=== PATIENT | female | born 1990 | race Caucasian/White ===

== ENCOUNTER 2023-12-02 16:57 | Emergency (ER) | payer OTHER ==
[~2023-12-02] VITALS: Ht 165.1 cm; Wt 68.0 kg
[2023-12-02] MEDS ORDERED: IBUPROFEN 600 MG TABLET ONE (18:42)
[2023-12-02] MEDS: IBUPROFEN 600 MG TABLET PO ONE (18:45)
[2023-12-02 18:46] VITALS: BP 130/80; TEMP 97; O2SAT 99
== END 2023-12-02 18:47 | disposition home or self-care (01) ==
LOC: ER 17:10
DX: R20.2 Paresthesia of skin (principal); F32.A Depression, unspecified
CPT/HCPCS: A4606; A4663

== ENCOUNTER 2025-06-02 07:17 | Inpatient (IN) | payer OTHER ==
[~2025-06-02] VITALS: Ht 165.1 cm; Wt 68.0 kg
[~2025-06-02 07:17] MED LIST: DICY10CA13 PO; ONDA4TAB5 PO; PANT40TA2 PO
[2025-06-02 08:28] LABS: PLATELET COUNT (AUTO) 297 K/uL (179-408); RED BLOOD CELL COUNT(AUTO) 4.49 MIL/uL (3.63-4.92); RED CELL DISTRIBUTION WIDTH 13.6 % (12.3-17.7); WHITE BLOOD COUNT (AUTO) 6.7 K/uL (3.8-11.8)
[2025-06-02 08:33] LABS: CREATININE 0.7 mg/dL (0.6-1.3); SODIUM SERUM 142.0 mmol/L (136-145); UREA NITROGEN, BLOOD 8.0 mg/dL (7-18)
[2025-06-02] MEDS: IV NORMAL SALINE 1000 ML BAG IV ONE (08:33)
[2025-06-02] MEDS ORDERED: HYDROMORPHONE 1 MG/1 ML DISP.SYRIN ONE (08:35)
[2025-06-02] MEDS ORDERED: ONDANSETRON 4 MG/2 ML VIAL ONE (08:35)
[2025-06-02 08:39] LABS: ASPARTATE AMINOTRANSFERASE 208.0 U/L (15-37); TOTAL PROTEIN, SERUM 7.1 g/dL (6.4-8.2)
[2025-06-02] MEDS: HYDROMORPHONE 1 MG/1 ML DISP.SYRIN IV ONE (08:39)
[2025-06-02] MEDS: ONDANSETRON 4 MG/2 ML VIAL IV ONE (08:39)
[2025-06-02] MEDS ORDERED: CHOLECALCIFEROL 1,000 UNIT TABLET ONE (09:19)
[2025-06-02] MEDS: CHOLECALCIFEROL 1,000 UNIT TABLET PO ONE (09:23)
[2025-06-02 10:36] LABS: *BILIRUBIN,URIN NEGATIVE (NEGATIVE); *BLOOD, URINE 2+ (NEGATIVE); *COLOR,URINE YELLOW (YELLOW); *KETONES,URINE NEGATIVE (NEGATIVE); *PROTEIN,URINE NEGATIVE (NEGATIVE); *UROBILINOGEN,URINE 0.2 E.U./dl (NORMAL); LEUKOCYTE ESTERASE ,URINE 1+ (NEGATIVE); NITRITE, URINE NEGATIVE (NEGATIVE); UGLUCOSE NEGATIVE (NEGATIVE)
[2025-06-02 11:20] LABS: *CLARITY,URINE SLIGHTLY HAZY (CLEAR)
[2025-06-02 11:21] LABS: SQUAMOUS EPITHELIAL CELL,UR FEW /HPF (NONE SEEN); URINE AMORPHOUS URATE FEW /HPF
[2025-06-02 12:15] VITALS: BP 115/70
[2025-06-02 15:08] VITALS: BP 122/78; TEMP 97.9; O2SAT 97
[2025-06-02] MEDS ORDERED: BUPR-96 PO (15:57)
[2025-06-02] MEDS ORDERED: LABE200T5 PO (15:57)
[2025-06-02] MEDS ORDERED: NIFE-35 PO (15:57)
[2025-06-02] MEDS ORDERED: [UNRECOGNIZED DRUG - CODE] PO (15:57)
[2025-06-02] MEDS ORDERED: ONDANSETRON 4 MG/2 ML VIAL IV PRN (17:30)
[2025-06-02] MEDS ORDERED: ACETAMINOPHEN 325 MG TABLET PO PRN (17:30)
[2025-06-02] MEDS ORDERED: REMEDY ESSENTIAL ZINC PASTE 113 GM TP PRN (17:30)
[2025-06-02] MEDS: KETOROLAC TROMETHAMINE 15 MG INJ IVP PRN (20:47)
[2025-06-03] MEDS: HYDROCODONE/APAP 10-325 MG TABLET PO PRN (03:19)
[2025-06-03 05:41] VITALS: BP 114/78; TEMP 98.6; O2SAT 96
[2025-06-03] MEDS: PANTOPRAZOLE SODIUM 40 MG TABLET.DR PO SCH (06:06)
[2025-06-03 06:42] LABS: PLATELET COUNT (AUTO) 300 K/uL (179-408); RED BLOOD CELL COUNT(AUTO) 4.72 MIL/uL (3.63-4.92); RED CELL DISTRIBUTION WIDTH 14.1 % (12.3-17.7); WHITE BLOOD COUNT (AUTO) 7.2 K/uL (3.8-11.8)
[2025-06-03 07:01] LABS: ASPARTATE AMINOTRANSFERASE 217.0 U/L (15-37); CREATININE 0.7 mg/dL (0.6-1.3); SODIUM SERUM 140.0 mmol/L (136-145); TOTAL PROTEIN, SERUM 6.3 g/dL (6.4-8.2); UREA NITROGEN, BLOOD 9.0 mg/dL (7-18)
[2025-06-03] MEDS: LABETALOL HCL 200 MG TABLET PO SCH (08:04)
[2025-06-03] MEDS: buPROPion XL 150 MG TAB.SR.24H PO SCH (08:05)
[2025-06-03] MEDS: NIFEdipine XL 30 MG TABSR PO SCH (08:05)
[2025-06-03 11:55] VITALS: BP 97/66; TEMP 97.9; O2SAT 98
[2025-06-03] MEDS ORDERED: CEPH500T PO (12:16)
[2025-06-03] MEDS ORDERED: PANT40TA49 PO (12:16)
[2025-06-03] MEDS ORDERED: IBUP-1953 PO (12:16)
== END 2025-06-03 13:01 | disposition home or self-care (01) | DRG 776 ==
LOC: ER 07:17 → MEDSURG3 14:48
PROVIDERS: ADMIT Nurse Practitioner Acute Care; ATTEND Nurse Practitioner Acute Care
DX: O99.63 Diseases of the digestive system complicating the puerperium (principal); N39.0 Urinary tract infection, site not specified; K80.20 Calculus of gallbladder without cholecystitis without obstruction; O86.20 Urinary tract infection following delivery, unspecified; K76.0 Fatty (change of) liver, not elsewhere classified; F32.A Depression, unspecified; Z79.899 Other long term (current) drug therapy; R74.01 Elevation of levels of liver transaminase levels
CPT/HCPCS: 36415; 74181; 83690; 83735; 84100; 85025; 87086; A4606; A4663; G0378; J0696; J1171; J1885; J2405; J7040

== ENCOUNTER 2025-07-06 14:54 | Inpatient (IN) | payer OTHER ==
[~2025-07-06] VITALS: Ht 165.1 cm; Wt 68.0 kg
[~2025-07-06 14:54] MED LIST changes: +BUPR-96 PO; +CEPH500T PO; -DICY10CA13 PO; +IBUP-1953 PO; -ONDA4TAB5 PO; -PANT40TA2 PO; +PANT40TA49 PO
[2025-07-06 16:11] LABS: *BILIRUBIN,URIN NEGATIVE (NEGATIVE); *BLOOD, URINE NEGATIVE (NEGATIVE); *CLARITY,URINE CLEAR (CLEAR); *COLOR,URINE YELLOW (YELLOW); *KETONES,URINE 4+ (NEGATIVE); *PROTEIN,URINE NEGATIVE (NEGATIVE); *UROBILINOGEN,URINE 0.2 E.U./dl (NORMAL); LEUKOCYTE ESTERASE ,URINE NEGATIVE (NEGATIVE); NITRITE, URINE NEGATIVE (NEGATIVE); UGLUCOSE NEGATIVE (NEGATIVE)
[2025-07-06 16:16] LABS: PLATELET COUNT (AUTO) 304 K/uL (179-408); RED BLOOD CELL COUNT(AUTO) 5.18 MIL/uL (3.63-4.92); RED CELL DISTRIBUTION WIDTH 13.9 % (12.3-17.7); WHITE BLOOD COUNT (AUTO) 9.4 K/uL (3.8-11.8)
[2025-07-06] MEDS ORDERED: ONDANSETRON 4 MG/2 ML VIAL ONE (16:26)
[2025-07-06] MEDS ORDERED: HYDROMORPHONE 1 MG/1 ML DISP.SYRIN ONE ×2 (16:26→17:01)
[2025-07-06] MEDS: ONDANSETRON 4 MG/2 ML VIAL IV ONE (16:27)
[2025-07-06] MEDS: IV NORMAL SALINE 1000 ML BAG IV ONE (16:27)
[2025-07-06] MEDS: HYDROMORPHONE 1 MG/1 ML DISP.SYRIN IV ONE ×2 (16:29→17:02)
[2025-07-06 16:30] LABS: ASPARTATE AMINOTRANSFERASE 101 U/L (15-37); CREATININE 0.9 mg/dL (0.6-1.3); SODIUM SERUM 143 mmol/L (136-145); TOTAL PROTEIN, SERUM 8.0 g/dL (6.4-8.2); UREA NITROGEN, BLOOD 12 mg/dL (7-18)
[2025-07-06 18:00] VITALS: BP 129/78
[2025-07-06 19:00] VITALS: BP 122/76; TEMP 97.9; O2SAT 96
[2025-07-06] MEDS ORDERED: ONDANSETRON 4 MG/2 ML VIAL IV PRN (21:15)
[2025-07-06] MEDS ORDERED: ACETAMINOPHEN 650 MG SUPP.RECT RC PRN (21:15)
[2025-07-06] MEDS ORDERED: PIPERACILLIN SODIUM/TAZOBACTAM 3.375 G in IV DEXTROSE 5% 50 ML IV SCH (22:00)
[2025-07-06] MEDS ORDERED: PIPERACILLIN/TAZOBACTAM/D5W 50 ML IV ONE ×2 (22:32→22:33)
[2025-07-06] MEDS: HYDROMORPHONE 1 MG/1 ML DISP.SYRIN IV PRN (22:42)
[2025-07-06] MEDS: PIPERACILLIN SODIUM/TAZOBACTAM 3.375 G in IV DEXTROSE 5% 50 ML IV SCH (22:42)
[2025-07-06] MEDS: IV D5 1/2 NS 1000 ML 1,000 ML IV PRN (22:48)
[2025-07-07 00:55] LABS: *BILIRUBIN,URIN 1+ (NEGATIVE); *BLOOD, URINE NEGATIVE (NEGATIVE); *COLOR,URINE YELLOW (YELLOW); *KETONES,URINE 4+ (NEGATIVE); *PROTEIN,URINE NEGATIVE (NEGATIVE); *UROBILINOGEN,URINE 0.2 E.U./dl (NORMAL); LEUKOCYTE ESTERASE ,URINE NEGATIVE (NEGATIVE); NITRITE, URINE NEGATIVE (NEGATIVE); UGLUCOSE NEGATIVE (NEGATIVE)
[2025-07-07 00:59] LABS: *CLARITY,URINE HAZY (CLEAR)
[2025-07-07 01:07] LABS: SQUAMOUS EPITHELIAL CELL,UR FEW /HPF (NONE SEEN)
[2025-07-07 04:00] VITALS: BP 121/78; TEMP 97.8; O2SAT 96
[2025-07-07 07:14] LABS: PLATELET COUNT (AUTO) 262 K/uL (179-408); RED BLOOD CELL COUNT(AUTO) 4.90 MIL/uL (3.63-4.92); RED CELL DISTRIBUTION WIDTH 13.7 % (12.3-17.7); WHITE BLOOD COUNT (AUTO) 9.6 K/uL (3.8-11.8)
[2025-07-07 07:39] LABS: ASPARTATE AMINOTRANSFERASE 37 U/L (15-37); CREATININE 0.7 mg/dL (0.6-1.3); SODIUM SERUM 139 mmol/L (136-145); TOTAL PROTEIN, SERUM 6.7 g/dL (6.4-8.2); UREA NITROGEN, BLOOD 9 mg/dL (7-18)
[2025-07-07] MEDS: PANTOPRAZOLE SODIUM 40 MG VIAL IV SCH (08:23)
[2025-07-07 10:30] VITALS: BP 112/52; TEMP 99.5; O2SAT 95
[2025-07-07] MEDS: PIPERACILLIN SODIUM/TAZOBACTAM 3.375 G in IV DEXTROSE 5% 100 ML IV SCH (14:34)
[2025-07-07 15:40] VITALS: BP 114/71; TEMP 98.9; O2SAT 96
[2025-07-07 19:00] VITALS: BP 127/79; TEMP 99.2; O2SAT 99
[2025-07-08 04:00] VITALS: BP 124/78; TEMP 98.8; O2SAT 96
[2025-07-08 07:16] LABS: PLATELET COUNT (AUTO) 252 K/uL (179-408); RED BLOOD CELL COUNT(AUTO) 4.58 MIL/uL (3.63-4.92); RED CELL DISTRIBUTION WIDTH 13.9 % (12.3-17.7); WHITE BLOOD COUNT (AUTO) 10.5 K/uL (3.8-11.8)
[2025-07-08 07:32] LABS: CREATININE 0.8 mg/dL (0.6-1.3); SODIUM SERUM 137.0 mmol/L (136-145); UREA NITROGEN, BLOOD 6.0 mg/dL (7-18)
[2025-07-08 10:25] VITALS: BP 120/65; TEMP 98.4; O2SAT 95
[2025-07-08] MEDS ORDERED: CIPR-262 PO (13:01)
[2025-07-08 19:20] VITALS: BP 132/87; TEMP 98.4; O2SAT 98
[2025-07-09 05:43] VITALS: BP 125/81; TEMP 98.6; O2SAT 100
[2025-07-09 10:47] VITALS: BP 97/65; TEMP 98.1; O2SAT 98
[2025-07-09 16:00] VITALS: BP 101/64; TEMP 98.6; O2SAT 98
== END 2025-07-09 17:41 | disposition home or self-care (01) | DRG 444 ==
LOC: ER 14:54 → MEDSURG3 18:09
PROVIDERS: ADMIT Internal Medicine; ATTEND Nurse Practitioner Acute Care
DX: K80.20 Calculus of gallbladder without cholecystitis without obstruction (principal); K85.90 Acute pancreatitis without necrosis or infection, unspecified; F32.A Depression, unspecified; K75.81 Nonalcoholic steatohepatitis (NASH); Z79.899 Other long term (current) drug therapy
CPT/HCPCS: 36415; 78445; 83605; 83690; 83735; 84100; 85025; 85730; 87086; A4663; A9537; G0378; J1171; J2405; J2470; J2543; J7040